=== PATIENT | female | born 1940 | race Caucasian/White ===

== ENCOUNTER 2019-01-23 11:20 | Emergency (ER) | payer MEDICARE ==
[~2019-01-23] VITALS: Ht 167.6 cm; Wt 89.8 kg
[~2019-01-23 11:20] MED LIST: LISI40TA PO; METF850T8 PO; SIMV40TA3 PO
[2019-01-23] MEDS ORDERED: IV NORMAL SALINE 1,000ML 1,000 ML IV SCH (11:30)
[2019-01-23 11:36] VITALS: BP 133/78
[2019-01-23 11:43] LABS: BASO # 0.1 x10^3/uL (0.0-0.2); BASO % 1 % (0-3); EOS # 0.2 x10^3/uL (0.0-0.7); EOS % 2 % (0-3); HEMATOCRIT 38.4 % (36.0-47.0); HEMOGLOBIN 12.4 g/dL (12.0-15.5); LYMPH # 3.2 x10^3/uL (1.0-4.8); LYMPH % 33 % (24-48); MEAN CORPUSCULAR HEMOGLOBIN 30 pg (25-35); MEAN CORPUSCULAR HGB CONC 32 g/dL (31-37); MEAN CORPUSCULAR VOLUME 92 fL (79-100); MONO # 0.7 x10^3/uL (0.0-1.1); MONO % 7 % (0-9); NEUT # 5.4 x10^3uL (1.8-7.7); NEUT % 56 % (31-73); PLATELET COUNT 308 x10^3/uL (140-400); RED BLOOD COUNT 4.18 x10^6/uL (3.50-5.40); WHITE BLOOD COUNT 9.6 x10^3/uL (4.0-11.0)
--- NOTE | 2019-01-23 11:55 | PHYS DOC ---
Past History Past Medical History: COPD, Diabetes, GERD, High Cholesterol, Hypertension Past Surgical History: No Surgical History Alcohol Use: None Drug Use: None Adult General Chief Complaint Chief Complaint: CHEST PAIN HPI HPI Patient is a 78-year-old female who presents with complaint of chest pain that started approximately 1.5 hour prior to her arrival. She states that she had been at [facility] and developed chest pain while she was walking through store. She states that pain at its worst was about a 5 out of 10 and describes the pain as just a pressure in the center of her chest. She states that it radiated up into her neck bilaterally. She denies having had any nausea but does admit to some mild clamminess. Patient presented to the [facility] where the old emergency room was at which point staff called EMS to bring patient down to the hospital. Patient was given 4 baby aspirin as well as a sublingual nitroglycerin by EMS prior to arrival to the emergency room. Patient did report to improvement in chest pain after the sublingual nitroglycerin and currently she states her pain is about a 2 out of 10. She also indicates that she had some improvement in pain with rest.[] Review of Systems Review of Systems Constitutional: Denies fever or chills [] Respiratory: Denies cough or shortness of breath [] Cardiovascular: No additional information not addressed in HPI [] GI: Denies abdominal pain, nausea, vomiting or diarrhea [] Neurologic: Denies headache, focal weakness or sensory changes [] All other systems were reviewed and found to be within normal limits, except as documented in this note. Current Medications Current Medications Current Medications Medications (Trade) Dose [place] [facility] [place] [facility] Start Time Stop Time Status Last Admin Dose Admin Sodium Chloride 1,000 ml @ 100 mls/hr Q10H 01/23/19 11:30 01/23/19 21:29 Allergies Allergies Allergies Coded Allergies Type Severity Reaction Last Updated Verified No Known Drug Allergies 04/03/15 No Physical Exam Physical Exam Constitutional: Well developed, well nourished, no acute distress, non-toxic appearance. [] HENT: Normocephalic, atraumatic, bilateral external ears normal, oropharynx moist, no oral exudates, nose normal. [] Eyes: PERRLA, EOMI, conjunctiva normal, no discharge. [] Neck: Normal range of motion, no tenderness, supple, no stridor. [] Cardiovascular:Heart rate regular rhythm, no murmur [] Lungs & Thorax: Bilateral breath sounds clear to auscultation [] Abdomen: Bowel sounds normal, soft, no tenderness. [] Skin: Warm, dry, no erythema, no rash. [] Extremities: No tenderness, no cyanosis, no clubbing, ROM intact. [] Neurologic: Alert and oriented X 3, no focal deficits noted. [] Current Patient Data Vital Signs Vital Signs Date Time Temp Pulse Resp B/P (MAP) Pulse Ox O2 Delivery O2 Flow Rate FiO2 01/23/19 11:36 98.2 90 18 97 Room Air EKG EKG EKG demonstrates sinus rhythm with rate of 92.[] Radiology/Procedures Radiology/Procedures [] Course & Med Decision Making Course & Med Decision Making Pertinent Labs and Imaging studies reviewed. (See chart for details) Patient moved to room upon arrival was evaluated by your medical staff after which cardiac workup was initiated on this patient. Patient's cardiac workup has returned fairly unremarkable. I did inform patient that based on her chief complaint and alleviating factors, I do feel that patient should be admitted for further evaluation with cardiology consultation. Patient initially was in agreement with this plan; however, patient became impatient that she was not transferred up to the hospital immediately and thus demanded to be released from facility. Patient signed out AGAINST MEDICAL ADVICE despite lengthy counseling regarding importance of admission with additional cardiac workup. Patient was explained risks associated with leaving AMA to include worsened condition and possible . Dragon Disclaimer Dragon Disclaimer This electronic medical record was generated, in whole or in part, using a voice recognition dictation system. Departure Departure: Impression: Primary Impression: Chest pain Disposition: 07 AGAINST MEDICAL ADVICE Condition: IMPROVED Referrals: JANELL STEIN MD (PCP) Problem Qualifiers Primary Impression: Chest pain Chest pain type: unspecified Qualified Codes: R07.9 - Chest pain, unspecified NIK BATES Jr. DO Jan 23, 2019 11:55
[2019-01-23 12:04] LABS: ALBUMIN 3.3 g/dL (3.4-5.0); CALCIUM 9.1 mg/dL (8.5-10.1); GFR 53.5; MAGNESIUM 1.9 mg/dL (1.8-2.4); POTASSIUM 4.6 mmol/L (3.5-5.1); TOTAL BILIRUBIN 0.3 mg/dL (0.2-1.0); TOTAL PROTEIN 6.7 g/dL (6.4-8.2)
--- NOTE | 2019-01-23 12:13 | RAD ---
PORTABLE CHEST 1V History: Chest pain Comparison: None. Findings: Single view of the chest is submitted. There is some beam attenuation by soft tissues. Hazy left base airspace opacity is not excluded on this exam. There is no pneumothorax or significant dependent pleural fluid. Heart size is considered within normal limits given technique. There is atherosclerotic calcification near aortic arch. Impression: 1. Hazy left base airspace opacity is not excluded on this exam although findings may be due to beam attenuation by soft tissues. Electronically signed by: Yuval Kendall MD (01/23/2019 12:10 PM) [id number]
[2019-01-23] MEDS ORDERED: MORPHINE SULFATE 2 MG/ML DISP.SYRIN. IV PRN (13:30)
[2019-01-23] MEDS ORDERED: NITROGLYCERIN SUBLINGUAL 0.4 MG BOTTLE OF 25. SL PRN (13:30)
[2019-01-23] MEDS ORDERED: ONDANSETRON PF 4 MG/2 ML VIAL. IV PRN (13:30)
== END 2019-01-23 13:45 | disposition left against medical advice (07) ==
LOC: ER 11:20
DX: R07.89 Other chest pain (principal); J44.9 Chronic obstructive pulmonary disease, unspecified; E11.9 Type 2 diabetes mellitus without complications; K21.9 Gastro-esophageal reflux disease without esophagitis; E78.00 Pure hypercholesterolemia, unspecified; I10 Essential (primary) hypertension
CPT/HCPCS: 36415; 71045; 80053; 83735; 83880; 84443; 84484; 85025; 85610; 99285-25; J7030

== ENCOUNTER → 2020-10-15 | Outpatient (CLI) | payer MEDICARE ==
[~2020-10-15] MED LIST changes: +IOHEXOL 240 MG/ML 50ML VIAL. ONE; -LISI40TA PO; +LISI40TA6 PO; +SIMV40TA18 PO; -SIMV40TA3 PO
--- NOTE | 2020-10-15 14:10 | RAD ---
CT abdomen and pelvis without contrast: Reason for examination: Left lower quadrant abdominal pain. Helical images were obtained through the abdomen and pelvis with oral administration of 30 cc Omnipaq ue 240. No intravenous contrast was administered. Reconstruction was performed in sagittal and mena l planes. Exposure: One or more of the following individualized dose reduction techniques were utilized for thi s examination: 1. Automated exposure control 2. Adjustment of the mA and/or kV according to patient size 3. Use of iterative reconstruction technique. There is some linear atelectasis at the lung bases. The heart size is normal with no pericardial effu emanuel. No abnormality seen at the liver, spleen, adrenal glands, pancreas or gallbladder. The abdominal aort a shows some arteriosclerotic vascular calcification but no aneurysmal dilatation. No abnormality see n at the inferior vena cava. The colon shows some diverticulosis in the distal descending and sigmoid colon with changes consistent with diverticulitis at the junction between the descending and sigmoid colon. No abnormality seen at the appendix. The small intestinal tract shows no abnormal dilatation, wall thickening or obstruction. No abnormality seen at the stomach or duodenum. There is a small hyp erdense lesion at the upper pole of the left kidney which may represent a small angiomyolipoma measur ing 8.2 mm in size. No renal calculi, hydronephrosis or obstructive uropathy is seen. No abnormality seen at the bladder, uterus or ovaries. There is a thoracolumbar scoliosis with some d egenerative changes especially at the L3-4 disc level. No acute bony abnormalities are seen. IMPRESSION: Linear atelectasis at the lung bases. Changes consistent with diverticulitis at the junction between the distal descending colon and sigmoi d colon. 8.2 mm hyperdense lesion in the upper pole of the left kidney. This could represent a small angiomyol ipoma. Recommend follow-up. Electronically signed by: Tiff Delcid MD (10/15/2020 2:07 PM) [facility]
== END ==
LOC: CT 12:20
PROVIDERS: ATTEND Specialist
DX: R10.84 Generalized abdominal pain (principal); J98.11 Atelectasis; M41.85 Other forms of scoliosis, thoracolumbar region
CPT/HCPCS: 74176

== ENCOUNTER → 2021-01-08 | Outpatient (CLI) | payer MEDICARE ==
--- NOTE | 2021-01-08 11:39 | RAD ---
PQRS Compliance Statement: One or more of the following individualized dose reduction techniques were utilized for this examinat ion: 1. Automated exposure control 2. Adjustment of the mA and/or kV according to patient size 3. Use of iterative reconstruction technique CT ABDOMEN+PELVIS WO Clinical Indication: Reason: DIVERTICULITIS / Comparison: CT abdomen and pelvis without contrast October 15, 2020. TECHNIQUE: Helical CT imaging of the abdomen and pelvis is performed after oral contrast. IV contrast not administered. Findings: There is atelectasis and/or scarring in the bilateral lung bases subpleural nodule in the right middl e lobe is stable, image 6. There is severe mitral annular calcification. Coronary artery disease. Car diac size normal. Liver, gallbladder, spleen, pancreas, and adrenal glands are normal. There is severe atherosclerotic calcification of the abdominal aorta, no aneurysm. There is moderate bilateral perinephric stranding, unchanged. There is no hydronephrosis. Small hyperdense lesion upper pole of left kidney is stable. The stomach is unremarkable. The appendix is normal. There is no dilated small bowel. There is distal colon diverticulosis. Diverticulitis of the distal descending colon has resolved. No colon mass or c olon wall thickening is identified. There is no abdominal adenopathy or free fluid. Atrophic uterus. Urinary bladder is normal. No pelvic free fluid. There is mild reverse S-shaped thoracolumbar scoliosis. There is arthropathy of the left hip. There i s degenerative spondylosis. IMPRESSION: 1. No acute abdominal or pelvic abnormality. 2. Small hyperdense lesion upper pole of left kidney is unchanged and may be a hyperdense cyst versu s solid mass. Suggest outpatient renal ultrasound. 3. Distal colon diverticulosis. Electronically signed by: Cresencio Mccarthy MD (01/08/2021 11:36 AM) [facility]
== END ==
LOC: CT 08:55
PROVIDERS: ATTEND Specialist
DX: K57.30 Diverticulosis of large intestine without perforation or abscess without bleeding (principal); N28.9 Disorder of kidney and ureter, unspecified; N85.8 Other specified noninflammatory disorders of uterus; M16.12 Unilateral primary osteoarthritis, left hip; I25.10 Atherosclerotic heart disease of native coronary artery without angina pectoris; R91.1 Solitary pulmonary nodule; I34.8 Other nonrheumatic mitral valve disorders; I70.0 Atherosclerosis of aorta; M41.85 Other forms of scoliosis, thoracolumbar region; M47.817 Spondylosis without myelopathy or radiculopathy, lumbosacral region
CPT/HCPCS: 74176

== ENCOUNTER 2021-02-08 07:30 | Observation (INO) | payer MEDICARE ==
[~2021-02-08] VITALS: Ht 165.1 cm; Wt 89.0 kg
[~2021-02-08 07:30] MED LIST changes: -IOHEXOL 240 MG/ML 50ML VIAL. ONE
--- NOTE | 2021-02-08 07:57 | RAD ---
XR CHEST 1V History: Reason: SOB / Spl. Instructions: / History: Comparison: January 23, 2019 Findings: No consolidation or pleural effusion. Normal heart size. No pneumothorax. Impression: 1. No acute cardiopulmonary process. Electronically signed by: Moiz Johnson DO (02/08/2021 7:55 AM) [id number]
--- NOTE | 2021-02-08 08:04 | PHYS DOC ---
Past History Past Medical History: COPD, Diabetes, GERD, High Cholesterol, Hypertension Past Surgical History: No Surgical History Alcohol Use: None Drug Use: None General Adult EDM: Chief Complaint: SHORTNESS OF BREATH HPI: HPI: Patient is a 80-year-old female coming in for lightheadedness is worse with standing and previous chest tightness. Patient states the symptoms started at 3 AM. Patient had chest tightness and lightheadedness. Says he has her baseline COPD cough. Denies any chest pain. States she had some nausea and try to drink some water but vomited one time and felt better. Says the chest tightness has resolved now. Review of Systems: Review of Systems: All other systems within normal limits except for as noted in the HPI Allergies: Allergies: Allergies Coded Allergies Type Severity Reaction Last Updated Verified No Known Drug Allergies 02/08/21 No Physical Exam: PE: Constitutional: Well developed, well nourished, no acute distress, non-toxic appearance. [] HENT: Normocephalic, atraumatic, bilateral external ears normal, nose normal. [] Eyes: PERRLA, conjunctiva normal, no discharge. [] Neck: No rigidity, supple, no stridor. [] Cardiovascular: Regular rate and rhythm, brisk cap refill [] Lungs & Thorax: Non labored symmetric respirations, no tachypnea or respiratory distress [] Abdomen: Soft, nondistended. Skin: Warm, dry, no erythema, no rash. [] Back: Unremarkable Extremities: No deformities, range of motion grossly intact, no lower extremity edema [] Neurologic: Alert and oriented X 3, no focal deficits noted. [] Psychologic: Affect normal, judgement normal, mood normal. [] Current Patient Data: Vital Signs: Vital Signs Date Time Temp Pulse Resp B/P (MAP) Pulse Ox O2 Delivery O2 Flow Rate FiO2 02/08/21 07:42 98.3 91 18 138/67 95 Room Air EKG: EKG: Sinus rhythm, heart rate 80 bpm, no ST elevation or depression, no ectopy. [] Radiology/Procedures: Radiology/Procedures: [address] [address] IMAGING REPORT Signed PATIENT: YULI ABRAMS ACCOUNT: [id number] : 1940 LOCATION: ER AGE: 80 SEX: F EXAM STATUS: REG ER ORD. PHYSICIAN: ASHLEY MORTON MD REASON: SOB PROCEDURE: CHEST AP ONLY XR CHEST 1V History: Reason: SOB / Spl. Instructions: / History: Comparison: January 23, 2019 Findings: No consolidation or pleural effusion. Normal heart size. No pneumothorax. Impression: 1. No acute cardiopulmonary process. Electronically signed by: Moiz Johnson DO (02/08/2021 7:55 AM) [id number] DICTATED AND SIGNED BY: MOIZ JOHNSON DO DATE: 02/08/21 0754 CC: ASHLEY MORTON MD; JANELL STEIN MD ~MTH0 0 [] Heart Score: C/O Chest Pain: Yes HEART Score for Chest Pain: HEART Score for Chest Pain Response (Comments) Value History Moderately Suspicious 1 ECG Nonspecific Repolarizatio 1 Age > 65 2 Risk Factors >3 Risk Factors or Hx CAD 2 Troponin >3 x Normal Limit 2 Total 8 Risk Factors: Risk Factors: DM, Current or recent (<one month) smoker, HTN, HLP, family history of CAD, obesity. Risk Scores: Score 0 - 3: 2.5% MACE over next 6 weeks - Discharge Home Score 4 - 6: 20.3% MACE over next 6 weeks - Admit for Clinical Observation Score 7 - 10: 72.7% MACE over next 6 weeks - Early Invasive Strategies Course & Med Decision Making: Course & Med Decision Making Patient with NSTEMI no active chest pain. Unable to transfer [place] due to no available beds. Discussed with stitch wheeler Dr. Kline, he will see the patient here. Heparin bolus and drip ordered for emergency department. Admitted to Dr. Boyd, started metoprolol and isosorbide per Dr. Boyd's request. Dragon Disclaimer: Akila Disclaimer: This electronic medical record was generated, in whole or in part, using a voice recognition dictation system. Departure Departure: Impression: Primary Impression: NSTEMI (non-ST elevated myocardial infarction) Additional Impression: CHF (congestive heart failure) Disposition: ADMITTED INPATIENT Admitting Physician: Eduardo Boyd Condition: GUARDED Referrals: JANELL STEIN MD (PCP) ASHLEY MORTON MD Feb 08, 2021 08:04
[2021-02-08 08:12] LABS: BASO # 0.1 x10^3/uL (0.0-0.2); BASO % 1 % (0-3); EOS # 0.1 x10^3/uL (0.0-0.7); EOS % 1 % (0-3); HEMATOCRIT 34.3 % (36.0-47.0); HEMOGLOBIN 11.3 g/dL (12.0-15.5); LYMPH % 18 % (24-48); MEAN CORPUSCULAR HEMOGLOBIN 30 pg (25-35); MEAN CORPUSCULAR HGB CONC 33 g/dL (31-37); MEAN CORPUSCULAR VOLUME 90 fL (79-100); MONO # 0.6 x10^3/uL (0.0-1.1); MONO % 6 % (0-9); NEUT # 8.4 x10^3uL (1.8-7.7); NEUT % 75 % (31-73); PLATELET COUNT 363 x10^3/uL (140-400); RED BLOOD COUNT 3.81 x10^6/uL (3.50-5.40); RED CELL DISTRIBUTION WIDTH 14.7 % (11.5-14.5); WHITE BLOOD COUNT 11.1 x10^3/uL (4.0-11.0)
[2021-02-08] MEDS ORDERED: IV NORMAL SALINE 1,000ML 1,000 ML IV ONE (08:15)
[2021-02-08 08:22] LABS: CALCIUM 8.4 mg/dL (8.5-10.1); CREATININE 1.3 mg/dL (0.6-1.0); GFR 39.3; POTASSIUM 5.1 mmol/L (3.5-5.1)
[2021-02-08] MEDS ORDERED: ASPIRIN CHEWABLE 81 MG TABLET. PO ONE (08:45)
[2021-02-08 08:59] LABS: BACTERIA,URINE FEW /HPF (0-FEW); BILIRUBIN,URINE NEG (NEG); CLARITY,URINE HAZY; COLOR,URINE YELLOW; GLUCOSE,URINE NEG (NEG); HYALINE CASTS, URINE FEW /HPF; NITRITE,URINE NEG (NEG); RBC,URINE 0 /HPF (0-2); SQUAMOUS EPITHELIAL CELL,UR MANY /LPF; UROBILINOGEN,URINE 0.2 mg/dL (0.2 mg/dL)
[2021-02-08] MEDS ORDERED: NITROGLYCERIN SUBLINGUAL 0.4 MG BOTTLE OF 25. SL PRN (11:00)
[2021-02-08] MEDS ORDERED: MORPHINE SULFATE 2 MG/ML DISP.SYRIN. IVP PRN (11:00)
[2021-02-08] MEDS ORDERED: ACETAMINOPHEN 325 MG TABLET PO PRN (11:00)
[2021-02-08] MEDS ORDERED: ONDANSETRON PF 4 MG/2 ML VIAL. IVP PRN (11:00)
[2021-02-08] MEDS ORDERED: HEPARIN for IV BOLUS 10,000 UNIT/10 ML VIAL. IV PRN (11:15)
[2021-02-08] MEDS ORDERED: HEPARIN for IV BOLUS 10,000 UNIT/10 ML VIAL. IV ONE (11:15)
[2021-02-08] MEDS ORDERED: METOPROLOL TART IMMED RELEASE 25 MG TABLET. PO ONE (11:15)
[2021-02-08] MEDS ORDERED: ISOSORBIDE MONONITRATE ER 30 MG TAB.ER.24H PO ONE (11:15)
[2021-02-08] MEDS ORDERED: HEPARIN 25,000UTS/250ML PREMIX 250 ML IV PRN ×2 (11:15→12:30)
[2021-02-08 12:19] VITALS: BP 130/70
--- NOTE | 2021-02-08 12:36 | HP ---
ADMIT DATE: 02/08/2021 ATTENDING PHYSICIAN: Dr. Boyd. CHIEF COMPLAINT: Shortness of breath. HISTORY OF PRESENT ILLNESS: The patient is an 80-year-old female, fairly active and functioning. She presented with new onset of shortness of breath. In the ED, the workup demonstrated an early non-STEMI, troponin level was 0.9. Heparin was administered. Dr. Kline has been consulted. He will see her later today. There are no beds at [place]. She will be admitted to telemetry at our hospital. Heparin drip was initiated along with the beta blockade and nitrates. The patient does have some risk factors. She is hypertensive and diabetic. FAMILY HISTORY: Unremarkable for any heart disease. Both her parents relatively young, mother at age 58 of cholangiocarcinoma, father of rhabdomyosarcoma at age 68. SOCIAL HISTORY: She was a smoker remotely, quit over 40 years ago. No alcohol use. CURRENT MEDICATIONS: Were noted. She was taking lisinopril, metformin, and Zocor. ALLERGIES: She has no known drug allergies. REVIEW OF SYSTEMS: Significant for the problems that brought her here. No recent travel, fevers, chills or COVID exposure. No palpitation, no syncope. All other systems reviewed and turned to be negative. PHYSICAL EXAMINATION: GENERAL: When I saw her, this is a pleasant female. She was in no acute distress. VITAL SIGNS: Initial blood pressure was 152/78. She is afebrile, pulse is 86 and regular, oxygen saturation 97% on room air. HEENT: Head is without trauma. Pupils are reactive. Sclerae nonicteric. Oropharynx is clear. NECK: Supple. No bruits. LUNGS: Good breath sounds. CARDIOVASCULAR: Showed regular heart tones. No gallop. ABDOMEN: Soft. EXTREMITIES: Without edema. NEUROLOGIC: Focally intact. SKIN: Warm and dry. PERTINENT LABORATORY STUDIES: Hemoglobin is 11.3 g/dL with a white count of 11,000. Her first troponin was 0.978. BNP was 1086. Electrolytes within normal range, creatinine 1.3 mg percent. EKG is nondiagnostic. Chest x-ray was clear. ASSESSMENT: 1. An 80-year-old female with non-ST elevation myocardial infarction. 2. Type 2 diabetes. 3. Hypertension. 4. Dyspnea as only the symptom. 5. Hyperlipidemia. PLAN: 1. Admit to the telemetry unit. 2. Serial enzymes. 3. Formal cardiology consultation, Dr. Kline will see her later today. 4. Heparin drip. 5. Beta blockade. 6. Nitrates. GURDEEP/SONALI/IJEOMA DR: GURDEEP/tomasz TID: [id number] CC: JANELL STEIN MD
[2021-02-08] MEDS ORDERED: BUDE10.2 INH (15:29)
[2021-02-08] MEDS ORDERED: PROAIR RESPICL90 MCG INH (15:29)
[2021-02-08] MEDS ORDERED: VIT1CAPS12 PO (15:29)
[2021-02-08] MEDS ORDERED: HYDR25TA10 PO (15:29)
[2021-02-08] MEDS ORDERED: METF10007 PO (15:29)
[2021-02-08] MEDS ORDERED: ATOR40TA59 PO (15:29)
[2021-02-08] MEDS ORDERED: HYDR-2759 PO (15:29)
[2021-02-08 16:31] VITALS: BP 108/67
[2021-02-08] MEDS ORDERED: ALBUTEROL SULFATE 8GM INHALER. INH PRN (16:45)
[2021-02-08] MEDS: metFORMIN 500 MG TABLET PO SCH (17:12)
[2021-02-08 19:50] VITALS: BP 100/65
[2021-02-08] MEDS ORDERED: ATORVASTATIN CALCIUM 20 MG TABLET PO SCH (21:00)
--- NOTE | 2021-02-08 21:22 | PDOC2 ---
CARDIAC CONSULT DATE OF CONSULT DOS: DATE: 02/08/21 TIME: 21:12 REASON FOR CONSULT Reason for Consult SOB, chest pressure REFERRING PHYSICIAN Referring Physician Dr. Boyd SOURCE Source: Chart review, Patient HPI History of Present Illness The patient is an 80 year old female who reported chest pressure and SOB earlier today. She was evaluated in the ER and found to have no acute EKG changes but a mildly elevated troponin of 0.978 and a BNP of 1086. She has a history of HTN, HLD ,COPD and DM. She denies a history of CAD. She was started on IV heparin and is now resting comfortably in bed with no chest pain. PAST MEDICAL HISTORY Cardiovascular: HTN, hyperipidemia Pulmonary: COPD GI: GERD Endocrine: Diabetes PAST SURGICAL HISTORY Past Surgical History: No pertinent history FAMILY HISTORY Family History: Hypertension SOCIAL HISTORY Smoke: Quit ALCOHOL: none CURRENT MEDICATIONS Current Medications Current Medications Sodium Chloride 1,000 ml @ 1,000 mls/hr 1X ONCE IV ; Start 02/08/21 at 08:15; Stop 02/08/21 at 08:50; Status DC Aspirin (Aspirin Chewable) 324 mg 1X ONCE PO Last administered on 02/08/21at 08:46; Start 02/08/21 at 08:45; Stop 02/08/21 at 08:46; Status DC Ondansetron HCl (Zofran) 4 mg PRN Q4HRS PRN IVP NAUSEA/VOMITING; Start 02/08/21 at 11:00; Stop 02/09/21 at 10:59 Morphine Sulfate (Morphine 2mg Syringe) 2 mg PRN Q2HR PRN IVP PAIN; Start 02/08/21 at 11:00; Stop 02/09/21 at 10:59 Acetaminophen (Tylenol) 650 mg PRN Q4HRS PRN PO FEVER > 100.3'F Last administered on 02/08/21at 17:15; Start 02/08/21 at 11:00; Stop 02/09/21 at 10:59 Nitroglycerin (Nitrostat) 0.4 mg PRN Q5MIN PRN SL CHEST PAIN; Start 02/08/21 at 11:00; Stop 02/09/21 at 10:59 Heparin Sodium/ Dextrose 250 ml @ 10 mls/hr CONT PRN IV SEE I/O RECORD; Start 02/08/21 at 11:15; Stop 02/08/21 at 12:29; Status DC Heparin Sodium (Porcine) (Heparin Sodium) 4,000 unit 1X ONCE IV Last administered on 02/08/21at 11:28; Start 02/08/21 at 11:15; Stop 02/08/21 at 11:17; Status DC Heparin Sodium (Porcine) (Heparin Sodium) 2,250 unit PRN Q6HRS PRN IV FOR PTT LESS THAN 24 SECONDS; Start 02/08/21 at 11:15 Metoprolol Tartrate (Lopressor) 25 mg 1X ONCE PO Last administered on 02/08/21at 11:30; Start 02/08/21 at 11:15; Stop 02/08/21 at 11:19; Status DC Isosorbide Mononitrate (Imdur) 30 mg 1X ONCE PO Last administered on 02/08/21at 12:55; Start 02/08/21 at 11:15; Stop 02/08/21 at 11:19; Status DC Aspirin (Aspirin Enteric Coated) 81 mg DAILYWBKFT PO ; Start 02/09/21 at 08:00 Metoprolol Succinate (Toprol Xl) 50 mg DAILY PO ; Start 02/09/21 at 09:00 Isosorbide Mononitrate (Imdur) 30 mg DAILY PO ; Start 02/09/21 at 09:00 Heparin Sodium/ Dextrose 250 ml @ 10 mls/hr CONT PRN IV SEE I/O RECORD Last administered on 02/08/21at 12:56; Start 02/08/21 at 12:30 Albuterol Sulfate (Ventolin Hfa Inhaler) 2 puff PRN Q4HRS PRN INH SOA; Start 02/08/21 at 16:45 Atorvastatin Calcium (Lipitor) 40 mg QHS PO Last administered on 02/08/21at 20:36; Start 02/08/21 at 21:00 Metformin HCl (Glucophage) 1,000 mg BIDWMEALS PO Last administered on 02/08/21at 17:12; Start 02/08/21 at 17:00 Multivitamins/ Minerals (I-[place]) 1 tab DAILY PO ; Start 02/09/21 at 09:00 Active Scripts Active Reported Hydrocodone-Acetamin 5-325 mg (Hydrocodone/Acetaminophen) 1 Each Tablet 1 Tab PO PRN Q4HRS PRN Atorvastatin Calcium 40 Mg Tablet 1 Tab PO QHS Metformin Hcl 1,000 Mg Tablet 1 Tab PO BID Proair Respiclick (Albuterol Sulfate) 90 Mcg Aer.pow.ba 2 Puff INH Q4HRS PRN Hydrochlorothiazide 25 Mg Tablet 0.5 Tab PO QAM Preservision Areds Softgel (Vit A/Vit C/Vit E/Zinc/Copper) 1 Each Capsule 1 Cap PO DAILY Symbicort 160-4.5 Mcg Inhaler (Budesonide/Formoterol Fumarate) 10.2 Gm Hfa.aer.ad 2 Puff INH BID Lisinopril 40 Mg Tablet 1 Tab PO DAILY ALLERGIES Allergies: Coded Allergies: No Known Drug Allergies (Unverified , 02/08/21) ROS Respiratory: YES: Shortness of breath, SOB with excertion Cardiovascular: yes: Chest Pain PHYSICAL EXAM General: No acute distress HEENT: Atraumatic Lungs: Other (Slightly decreased breath sounds.) VITALS Vital Signs Vital Signs Date Time Temp Pulse Resp B/P (MAP) Pulse Ox O2 Delivery O2 Flow Rate FiO2 02/08/21 19:50 98.7 82 16 100/65 (77) 94 Room Air LABS LABS Laboratory Tests Test 02/08/21 07:58 02/08/21 08:37 02/08/21 12:10 02/08/21 14:15 White Blood Count 11.1 x10^3/uL (4.0-11.0) Red Blood Count 3.81 x10^6/uL (3.50-5.40) Hemoglobin 11.3 g/dL (12.0-15.5) Hematocrit 34.3 % (36.0-47.0) Mean Corpuscular Volume 90 fL (79-100) Mean Corpuscular Hemoglobin 30 pg (25-35) Mean Corpuscular Hemoglobin Concent 33 g/dL (31-37) Red Cell Distribution Width 14.7 % (11.5-14.5) Platelet Count 363 x10^3/uL (140-400) Neutrophils (%) (Auto) 75 % (31-73) Lymphocytes (%) (Auto) 18 % (24-48) Monocytes (%) (Auto) 6 % (0-9) Eosinophils (%) (Auto) 1 % (0-3) Basophils (%) (Auto) 1 % (0-3) Neutrophils # (Auto) 8.4 x10^3uL (1.8-7.7) Lymphocytes # (Auto) 2.0 x10^3/uL (1.0-4.8) Monocytes # (Auto) 0.6 x10^3/uL (0.0-1.1) Eosinophils # (Auto) 0.1 x10^3/uL (0.0-0.7) Basophils # (Auto) 0.1 x10^3/uL (0.0-0.2) Sodium Level 141 mmol/L (136-145) Potassium Level 5.1 mmol/L (3.5-5.1) Chloride Level 104 mmol/L (98-107) Carbon Dioxide Level 23 mmol/L (21-32) Anion Gap 14 (6-14) Blood Urea Nitrogen 28 mg/dL (7-20) Creatinine 1.3 mg/dL (0.6-1.0) Estimated GFR (Cockcroft-Gault) 39.3 Glucose Level 201 mg/dL (70-99) Calcium Level 8.4 mg/dL (8.5-10.1) Troponin I Quantitative 0.978 ng/mL (0-0.055) 6.162 ng/mL (0-0.055) RU-Dco-L-Type Natriuretic Peptide 1086 pg/mL (0-449) Urine Collection Type Unknown Urine Color Yellow Urine Clarity Hazy Urine pH 5.5 Urine Specific [place] >=1.030 Urine Protein Neg (NEG-TRACE) Urine Glucose (UA) Neg mg/dL (NEG) Urine Ketones (Stick) Neg mg/dL (NEG) Urine Blood Neg (NEG) Urine Nitrite Neg (NEG) Urine Bilirubin Neg (NEG) Urine Urobilinogen Dipstick 0.2 mg/dL (0.2 mg/dL) Urine Leukocyte Esterase Neg (NEG) Urine RBC 0 /HPF (0-2) Urine WBC 1-4 /HPF (0-4) Urine Squamous Epithelial Cells Many /LPF Urine Transitional Epithelial Cells Occ /LPF Urine Bacteria Few /HPF (0-FEW) Urine Hyaline Casts Few /HPF Urine Mucus Slight /LPF Prothrombin Time 10.7 SEC (9.4-11.4) Prothromb Time International Ratio 1.0 (0.9-1.1) Activated Partial Thromboplast Time 72 SEC (23-33) Test 02/08/21 18:30 Activated Partial Thromboplast Time 42 SEC (23-33) EKG EKG No acute ischemic changes ASSESSMENT/PLAN Assessment/Plan 1. Chest pain. Initial troponin of 0.978. Started on heparin. No chest pain. Will trend troponin. Continue to monitor. Ischemic work-up based on clinical course. 2. HTN. Continue present treatment. 3. Elevated BNP. Treatment as above. ECHO. 4. COPD. Continue baseline medications. 5. DM. As per the primary service. SIMEON MONROY MD Feb 08, 2021 21:22
[2021-02-08 22:45] VITALS: BP 105/62
[2021-02-09 05:55] VITALS: BP 151/73
[2021-02-09 06:44] LABS: BASO # 0.1 x10^3/uL (0.0-0.2); BASO % 1 % (0-3); EOS # 0.2 x10^3/uL (0.0-0.7); EOS % 2 % (0-3); HEMATOCRIT 32.8 % (36.0-47.0); HEMOGLOBIN 10.6 g/dL (12.0-15.5); LYMPH # 3.4 x10^3/uL (1.0-4.8); LYMPH % 29 % (24-48); MEAN CORPUSCULAR HEMOGLOBIN 29 pg (25-35); MEAN CORPUSCULAR HGB CONC 32 g/dL (31-37); MEAN CORPUSCULAR VOLUME 91 fL (79-100); MONO # 0.7 x10^3/uL (0.0-1.1); MONO % 6 % (0-9); NEUT # 7.1 x10^3uL (1.8-7.7); NEUT % 62 % (31-73); PLATELET COUNT 333 x10^3/uL (140-400); RED BLOOD COUNT 3.63 x10^6/uL (3.50-5.40); RED CELL DISTRIBUTION WIDTH 14.6 % (11.5-14.5); WHITE BLOOD COUNT 11.5 x10^3/uL (4.0-11.0)
[2021-02-09 06:47] LABS: CALCIUM 7.9 mg/dL (8.5-10.1); CREATININE 1.2 mg/dL (0.6-1.0); GFR 43.1; POTASSIUM 4.2 mmol/L (3.5-5.1)
[2021-02-09] MEDS: metFORMIN 500 MG TABLET PO SCH ×2 (08:00→08:09)
[2021-02-09] MEDS ORDERED: ASPIRIN ENTERIC COATED 81 MG TABLET.DR. PO SCH (08:00)
--- NOTE | 2021-02-09 08:08 | PDOC ---
CARDIO Progress Notes Date & Time Date of Service DATE: 02/09/21 TIME: 08:05 Time of Evaluation 08:05 Subjective Notes No chest pain, palpitations, dizziness, SOA Vitals Vitals Vital Signs Date Time Temp Pulse Resp B/P (MAP) Pulse Ox O2 Delivery O2 Flow Rate FiO2 02/09/21 05:55 98.4 84 16 151/73 (99) 97 Room Air Weight Weight [ ] Input and Output I.O. Intake and Output 02/09/21 07:00 Intake Total 490 ml Balance 490 ml Intake Oral 490 ml # Voids 2 Laboratory Labs Laboratory Tests Test 02/08/21 07:58 02/08/21 08:37 02/08/21 12:10 02/08/21 14:15 White Blood Count 11.1 x10^3/uL (4.0-11.0) Red Blood Count 3.81 x10^6/uL (3.50-5.40) Hemoglobin 11.3 g/dL (12.0-15.5) Hematocrit 34.3 % (36.0-47.0) Mean Corpuscular Volume 90 fL (79-100) Mean Corpuscular Hemoglobin 30 pg (25-35) Mean Corpuscular Hemoglobin Concent 33 g/dL (31-37) Red Cell Distribution Width 14.7 % (11.5-14.5) Platelet Count 363 x10^3/uL (140-400) Neutrophils (%) (Auto) 75 % (31-73) Lymphocytes (%) (Auto) 18 % (24-48) Monocytes (%) (Auto) 6 % (0-9) Eosinophils (%) (Auto) 1 % (0-3) Basophils (%) (Auto) 1 % (0-3) Neutrophils # (Auto) 8.4 x10^3uL (1.8-7.7) Lymphocytes # (Auto) 2.0 x10^3/uL (1.0-4.8) Monocytes # (Auto) 0.6 x10^3/uL (0.0-1.1) Eosinophils # (Auto) 0.1 x10^3/uL (0.0-0.7) Basophils # (Auto) 0.1 x10^3/uL (0.0-0.2) Sodium Level 141 mmol/L (136-145) Potassium Level 5.1 mmol/L (3.5-5.1) Chloride Level 104 mmol/L (98-107) Carbon Dioxide Level 23 mmol/L (21-32) Anion Gap 14 (6-14) Blood Urea Nitrogen 28 mg/dL (7-20) Creatinine 1.3 mg/dL (0.6-1.0) Estimated GFR (Cockcroft-Gault) 39.3 Glucose Level 201 mg/dL (70-99) Calcium Level 8.4 mg/dL (8.5-10.1) Troponin I Quantitative 0.978 ng/mL (0-0.055) 6.162 ng/mL (0-0.055) CF-Yjq-V-Type Natriuretic Peptide 1086 pg/mL (0-449) Urine Collection Type Unknown Urine Color Yellow Urine Clarity Hazy Urine pH 5.5 Urine Specific [place] >=1.030 Urine Protein Neg (NEG-TRACE) Urine Glucose (UA) Neg mg/dL (NEG) Urine Ketones (Stick) Neg mg/dL (NEG) Urine Blood Neg (NEG) Urine Nitrite Neg (NEG) Urine Bilirubin Neg (NEG) Urine Urobilinogen Dipstick 0.2 mg/dL (0.2 mg/dL) Urine Leukocyte Esterase Neg (NEG) Urine RBC 0 /HPF (0-2) Urine WBC 1-4 /HPF (0-4) Urine Squamous Epithelial Cells Many /LPF Urine Transitional Epithelial Cells Occ /LPF Urine Bacteria Few /HPF (0-FEW) Urine Hyaline Casts Few /HPF Urine Mucus Slight /LPF Prothrombin Time 10.7 SEC (9.4-11.4) Prothromb Time International Ratio 1.0 (0.9-1.1) Activated Partial Thromboplast Time 72 SEC (23-33) Test 02/08/21 18:30 02/09/21 06:15 Activated Partial Thromboplast Time 42 SEC (23-33) 47 SEC (23-33) White Blood Count 11.5 x10^3/uL (4.0-11.0) Red Blood Count 3.63 x10^6/uL (3.50-5.40) Hemoglobin 10.6 g/dL (12.0-15.5) Hematocrit 32.8 % (36.0-47.0) Mean Corpuscular Volume 91 fL (79-100) Mean Corpuscular Hemoglobin 29 pg (25-35) Mean Corpuscular Hemoglobin Concent 32 g/dL (31-37) Red Cell Distribution Width 14.6 % (11.5-14.5) Platelet Count 333 x10^3/uL (140-400) Neutrophils (%) (Auto) 62 % (31-73) Lymphocytes (%) (Auto) 29 % (24-48) Monocytes (%) (Auto) 6 % (0-9) Eosinophils (%) (Auto) 2 % (0-3) Basophils (%) (Auto) 1 % (0-3) Neutrophils # (Auto) 7.1 x10^3uL (1.8-7.7) Lymphocytes # (Auto) 3.4 x10^3/uL (1.0-4.8) Monocytes # (Auto) 0.7 x10^3/uL (0.0-1.1) Eosinophils # (Auto) 0.2 x10^3/uL (0.0-0.7) Basophils # (Auto) 0.1 x10^3/uL (0.0-0.2) Sodium Level 141 mmol/L (136-145) Potassium Level 4.2 mmol/L (3.5-5.1) Chloride Level 105 mmol/L (98-107) Carbon Dioxide Level 26 mmol/L (21-32) Anion Gap 10 (6-14) Blood Urea Nitrogen 23 mg/dL (7-20) Creatinine 1.2 mg/dL (0.6-1.0) Estimated GFR (Cockcroft-Gault) 43.1 Glucose Level 157 mg/dL (70-99) Calcium Level 7.9 mg/dL (8.5-10.1) Troponin I Quantitative 2.582 ng/mL (0-0.055) Physical Exams Chest: Symmetric Lungs: Clear to Auscultation Heart: RRR Abdomen: Soft N/T, Other (obese) Extremities: No Edema Neurology: alert, oriented, follow commands Assessment Assessment 1. Chest pain with typical features 2. NSTEMI; trop peak 6. On heparin gtt 3. Hypertension; controlled. 4. Hyperlipidemia 5. Diabetes, II 6. COPD Recommendations Lipid panel ASA Continue heparin gtt Given presenting symptomatology and risk factors in the setting of NSTEMI, recommend cardiac cath with possible PCI. R/b/a discussed with patient and she is agreeable to proceed Keep NPO Will transfer to [facility] for cath this afternoon. NEHA PANCHAL APRN Feb 09, 2021 08:07
[2021-02-09] MEDS ORDERED: ISOSORBIDE MONONITRATE ER 30 MG TAB.ER.24H PO SCH (09:00)
[2021-02-09] MEDS ORDERED: MULTIVITAMIN I-VITE TABLET. PO SCH (09:00)
[2021-02-09] MEDS ORDERED: METOPROLOL SUCC 24HR ER 50 MG TAB.ER.24H. PO SCH (09:00)
[2021-02-09 11:07] VITALS: BP 133/76
--- NOTE | 2021-02-09 11:54 | EKG ---
[address] [address] Test Date: 2021-02-08 Test Time: 07:43:58 Pat Name: YULI ABRAMS Department: Room: 105 A Gender: F Groundman: ANDRA : 1940 Requested By: ASHLEY MORTON Order Number: [id number] Reading MD: Measurements Intervals Jordan Rate: 80 P: 42 WI: 140 QRS: 14 QRSD: 84 T: 36 QT: 358 QTc: 416 Interpretive Statements SINUS RHYTHM LOW VOLTAGE QRS(T) CONTOUR ABNORMALITY CONSISTENT WITH ANTEROSEPTAL INFARCT PROBABLY OLD ABNORMAL ECG RI6.02 No previous ECG available for comparison
--- NOTE | 2021-02-09 19:25 | DS ---
DATE OF DISCHARGE: 02/09/2021 ATTENDING PHYSICIAN: Dr. Boyd. FINAL DISCHARGE DIAGNOSES: 1. Non-ST segment elevation myocardial infarction. 2. Type 2 diabetes mellitus. 3. Hypertension. 4. Dyspnea. 5. Hyperlipidemia. HISTORY AND PHYSICAL: The patient is an 80-year-old female presented to the ED with vague symptoms of dyspnea. No chest pain per se. She was found to have a non-STEMI. She was admitted here overnight, formal Cardiology consultation, nitrates, beta blockade, heparin drip ____ for further testing. PHYSICAL EXAMINATION: Please see my dictated note. PERTINENT LABORATORY AND X-RAY STUDIES: Her APTT was 47 seconds prior to this transfer to [facility]. Hemoglobin 11.3 g/dL, white count 11,100. Her troponin levels, the first one drawn was 0.97, the second one drawn on the afternoon of the day of admission peaked at 6.16, the third one came down to 2.58. Creatinine is 1.2 mg percent. Nonfasting blood sugar 157 mg/dL. Potassium and sodium were within normal range. COURSE IN THE HOSPITAL: The patient was admitted with a non-STEMI. She was placed on the monitor. She had no arrhythmias. She did not have any heart failure per se. She was started on intravenous heparin along with aspirin, beta blockade and nitrates. She did well. Formal Cardiology consultation was obtained. Arrangements were then made the next morning for transfer to [facility] for anticipated cardiac catheterization. Therefore, she is transferred to the hospitalist service there. I spoke with their hospitalist, they will accept the patient in transfer. She was hemodynamically and electrically stable. DISCHARGE MEDICATIONS: Include the following: She will continue her heparin drip at 1000 units per hour, albuterol, Lipitor, hydrochlorothiazide, hydrocodone, lisinopril, metformin, vitamin E complex. Her prognosis is fair. The patient was then discharged from our hospital in stable condition with explicit drug and followup care. RADHA/SWETHA DR: Tin TID: [id number] CC: JANELL STEIN MD
== END 2021-02-09 12:05 | disposition home or self-care (01) ==
LOC: ER 07:30 → 1 SOUTH 11:00 → INTOOBSV 11:00
PROVIDERS: ADMIT Hospitalist; ATTEND Hospitalist
DX: I21.4 Non-ST elevation (NSTEMI) myocardial infarction (principal); I11.0 Hypertensive heart disease with heart failure; I50.9 Heart failure, unspecified; J44.9 Chronic obstructive pulmonary disease, unspecified; E11.9 Type 2 diabetes mellitus without complications; E78.00 Pure hypercholesterolemia, unspecified; E78.5 Hyperlipidemia, unspecified; K21.9 Gastro-esophageal reflux disease without esophagitis; Z87.891 Personal history of nicotine dependence; Z79.01 Long term (current) use of anticoagulants; Z79.899 Other long term (current) drug therapy
CPT/HCPCS: 36415; 71045; 80048; 80061; 81001; 83880; 84484; 85025; 85610; 85730; 87426; 93005; 96365; 96366; 96376; 99285; G0378; J1644; 96374; G0379